=== PATIENT | female | born 1995 | race Caucasian/White ===

== ENCOUNTER 2018-06-16 02:19 | Inpatient (IN) | payer OTHER ==
[2018-06-16] VITALS (10 sets, daily range): BP systolic 86–116; BP diastolic 43–73
[~2018-06-16] VITALS: Ht 160 cm; Wt 56.7 kg
--- NOTE | 2018-06-16 02:25 | NUR ---
PT TAKEN TO BED 11 AND TRIAGED AT BEDSIDE.
--- NOTE | 2018-06-16 02:28 | NUR ---
PT CAME INTO ER WITH C/O OF HAVING DKA, VOMITING AND GENERALIZED WEAKNESS TODAY. PT STATED SHE WAS PREVIOUSLY AT [place] BUT WAS UNHAPPY WITH SERVICE. PT HAS HX OF DIABETES BUT ADMITS TO BEING NON COMPLIANT. WHEN PT TAKES MEDICATION, SHE TAKES HUMULIN R. PT ADMITS TO NOT EATING RIGHT AND NOT TAKING PROPER CARE OF SELF. PT SMOKED MARIJAUNA TODAY. PT WAS HAVING N/V IN ER. PT AMA A/OX4, RECOGNIZES PERSON, PLACE AND TIME APPROPRIATELY. PT STATED LMP WAS 2 WEEKS AGO BUT DATE IS [place]. ER MD MADE AWARE OF STATUS, SAFETY MEASURES IN PLACE, BED RAILS UP X 2. BOYFRIEND AT BEDSIDE. PT DENIES BEING HOMELESS, DRINKING ALCOHOL OR SMOKING CIGARETTES.
--- NOTE | 2018-06-16 02:30 | NUR ---
PT W/C ASSISTED TO RESTROOM. PT ADVISED TO USE CALL LIGHT WHEN FINISHED FOR ASSISTANCE. PT CALLED WITH CALL LIGHT, PT ASSISTED BACK INTO W/C AND TAKEN TO BED 11. PT THEN C/O NAUSEA AND BEGAN DRY HEAVING. PT ASSISTED INTO BED 11. SIGNIFICANT OTHER AT BEDSIDE. DR. KAHN MADE AWARE.
--- NOTE | 2018-06-16 02:34 | NUR ---
DR. KAHN AT BEDSIDE
[2018-06-16] MEDS ORDERED: NACL 0.9% 1,000 ML IV ONE ×3 (02:37→05:50)
[2018-06-16] MEDS ORDERED: INSULIN REGULAR, HUMAN 100 UNIT in NACL 0.9% 100 ML IV ONE ×4 (02:40→04:45)
[2018-06-16] MEDS ORDERED: KCL 20 MEQ/WATER INJ PREMIX 100 ML IV ONE (02:40)
[2018-06-16] MEDS ORDERED: ONDANSETRON 4 MG/2 ML VIAL IVP ONE (02:50)
[2018-06-16 03:18] LABS: APPEARANCE,URINE CLEAR (CLEAR); BILIRUBIN,URINE NEGATIVE (NEGATIVE); BLOOD, URINE NEGATIVE (NEGATIVE); COLOR,URINE YELLOW (YELLOW); LEUKOCYTE ESTERASE ,URINE NEGATIVE (NEGATIVE); NITRITE, URINE NEGATIVE (NEGATIVE); PH,URINE 5.5 (5.0-9.0); UGLUCOSE 2+ (NEGATIVE)
[2018-06-16 03:18] LABS: BASOPHILS % (AUTO) 0.2 % (0.0-2.0); EOSINOPHILS % (AUTO) 0.4 % (0.0-4.0); HEMATOCRIT 46.3 % (36-48); HEMOGLOBIN 15.6 g/dL (12.0-16.0); LYMPHOCYTES # (AUTO) 1.7 K/uL (2.5-16.5); LYMPHOCYTES % (AUTO) 25.4 % (20.5-51.1); MEAN CORPUSCULAR HEMOGLOBIN 31 pg (27-31); MEAN CORPUSCULAR HGB CONC 34 g/dL (33-37); MEAN CORPUSCULAR VOLUME 90.6 fL (80-94); MONOCYTES # (AUTO) 0.3 K/uL (0.8-1.0); MONOCYTES % (AUTO) 3.9 % (1.7-9.3); NEUTROPHILS # (AUTO) 4.8 K/uL (1.8-7.7); NEUTROPHILS % (AUTO) 70.1 % (42.2-75.2); PLATELET COUNT (AUTO) 246 K/uL (140-450); RED BLOOD CELL COUNT(AUTO) 5.11 MIL/uL (4.20-5.40); RED CELL DISTRIBUTION WIDTH 13.4 % (11.6-13.7); WHITE BLOOD COUNT (AUTO) 6.8 K/uL (4.5-11.0)
[2018-06-16 03:30] LABS: RBC,URINE 0-5 /HPF (0-5); WBC,URINE 0-5 /HPF (0-5)
--- NOTE | 2018-06-16 03:30 | NUR ---
PT WAS ABLE TO GET UP WITH ASSISTANCE TO USE THE RESTROOM, PT TOLERATED WELL. COMFORT MEASURES OFFERED. BOYFRIEND AT BEDSIDE.
[2018-06-16 03:32] LABS: ALBUMIN 4.1 g/dL (3.4-5.0); ASPARTATE AMINOTRANSFERASE 15 U/L (15-37); CARBON DIOXIDE 10.3 mmol/L (21-32); CHLORIDE 99 mmol/L (98-107); CREATININE 0.8 mg/dL (0.6-1.3); GFR ARICAN-AMERICAN 118 mL/min (>90); GLUCOSE 305 mg/dL (74-106); POTASSIUM 4.3 mmol/L (3.5-5.1); SODIUM SERUM 132 mmol/L (136-145); TOTAL BILIRUBIN 0.5 mg/dL (0.0-1.0); UREA NITROGEN, BLOOD 6 mg/dL (7-18)
[2018-06-16 03:33] LABS: ACETONE, SERUM SMALL (NEGATIVE)
--- NOTE | 2018-06-16 05:03 | NUR ---
PT IS SLEEPING. COMFORT MEASURES OFFERED. PT TOLERATED WELL. BOYFRIEND AT BEDSIDE.
[2018-06-16] MEDS ORDERED: ZOLPIDEM 5 MG TAB PO PRN (05:25)
[2018-06-16] MEDS ORDERED: DOCUSATE SODIUM 100 MG GELCAP PO PRN (05:25)
[2018-06-16] MEDS ORDERED: MORPHINE SULFATE 2 MG/ML SYR IVP PRN (05:25)
[2018-06-16] MEDS ORDERED: LORazepam 2 MG/ML VIAL IM/IVP PRN (05:25)
[2018-06-16] MEDS ORDERED: ACETAMINOPHEN 325 MG TAB PO PRN (05:25)
[2018-06-16] MEDS ORDERED: HYDROcodone/APAP 5/325 MG 1 TAB TAB PO PRN (05:25)
--- NOTE | 2018-06-16 05:25 | NUR ---
PT IS HAVING SOME PAIN AND AND DISCOMFORT. PT FEELS ANXIOUS AND HAS A HEADACHE. PT HAS SOME NAUSEA. ER MD MADE AWARE OF STATUS. PENDING ADMIT.
[2018-06-16] MEDS ORDERED: DEXTROSE 50% 50 ML SYR IVP PRN (05:30)
[2018-06-16] MEDS: INSULIN REGULAR, HUMAN 100 UNIT in NACL 0.9% 100 ML IV SCH ×4 (05:35→06:57)
--- NOTE | 2018-06-16 05:35 | NUR ---
PT WAS ADMITTED TO ICU #2. PT WAS TAKEN DOWN BY PETER AND LOSS PREVENTION AGENT. EMT, RN AND BOYFRIEND WAS WITH PT. ADMITING DR. WAS DR. GARCIA. REPORT WAS GIVEN GEOVANNA. VITALS WERE STABLE UPON TRANSFER.
--- NOTE | 2018-06-16 05:35 | NUR ---
RECEIVED BEDSIDE REPORT FROM HYPERBARIC NURSE YAZMIN MIRAMONTES LAST BG READING WAS 321. PT ARRIVED TO ICU, COMPLAINT 10/10 PAIN HEADACHE, RESTLESS/CRYING. ABLE TO SLIDE FROM BED GURNEY TO BED WITH ASSIST X2. AAOX4, PERRL, LUNG SOUND CLEAR ON ROOM AIR. DENIES NAUSEA AT THIS TIME. BOWEL SOUNDS ACTIVE X4. ST ON TECHNOLOGY AUDITOR, BP = 116/78, TEMP 98.1, RR=27, MA=555 SATING AT 100%. CONTINENT. PT ARRIVE WITH 10 UNIT/HR HUMULIN INSULIN TO LEFT 20 GAUGE PIV, AND RIGHT 20 GAUGE PIV INFUSING BOLUS NS AT THIS TIME. PT SKIN IS INTACT/WARM TO TOUCH. BOYFRIEND AT BEDSIDE TO TAKE HOME PT BELONGINGS. ALLERGY TO MUSTARD NOTED ON ALLERGY BAND, HOB 20 DEG PER PT REQUEST.
--- NOTE | 2018-06-16 05:45 | NUR ---
PT'S BLOOD SUGAR 256 UPON ARRIVAL, HUMULIN R BOLUS 56 UNITS IVP GIVEN (WEIGHT 56 KG). MEDICATION, DOSE, ROUTE CHECKED WITH SANTA LINDQUIST RN. Addendum: 06/16/18 at 0738 by Santa Abrams RN CORRECTION: HUMULIN R BOLUS OF 5.6 UNITS GIVEN. Addendum: 06/16/18 at 0739 by Catalino Roland RN HUMULIN R BOLUS IVP 5.6 UNITS GIVEN. NOT 56 UNITS. VERIFIED BY SECOND SANTA GAMEZ.
[2018-06-16] MEDS: BLOOD GLUCOSE MONITORING 1 DEV DEV FS SCH ×20 (05:47→23:31)
--- NOTE | 2018-06-16 06:29 | NUR ---
DR. MCWILLIAMS AT BEDSIDE TO SEE PATIENT, UPDATED ON PLAN OF CARE/DX. URINE OUTPUT YELLOW/CLEAR 1200ML. PT CALM/COOPERATIVE AT THIS TIME.
[2018-06-16] MEDS ORDERED: SERT50TA1 PO (06:45)
[2018-06-16] MEDS ORDERED: INSU100S22 SUBQ ×2 (06:45)
--- NOTE | 2018-06-16 07:12 | NUR ---
GAVE BEDSIDE REPORT FOR MORNING SHIFT EMILY GAMEZ.
--- NOTE | 2018-06-16 08:00 | NUR ---
PATIENT AWAKE, ORIENTED, ON ROOM AIR SO2 100%, CLEAR BREATH SOUNDS ON ALL FONSECA, SINUS RHYTHM ON MONITOR 91 BPM, SOFT ABDOMEN, VOIDING THROUGH THE BED ROCK PER NIGHT RN REPORT, PERIPHERAL IV LINES GAUGE 20 EACH ANTECUBITAL, D5 HALF NS 250 ML/HR. INFUSING IN THE RIGHT, INSULIN DRIP 2.8UNITS/HR INFUSING IN THE LEFT BOTH SITES ASYMPTOMATIC, SKIN INTACT. CALL WHELAN WITHIN REACH
[2018-06-16 08:24] LABS: PROTHROMBIN TIME 10.4 secs (10.8-13.4)
[2018-06-16] MEDS: DEXT 5% / NACL 0.45% 1,000 ML IV SCH ×5 (08:25→23:20)
--- NOTE | 2018-06-16 08:28 | NUR ---
FOLLOWED UP LAB. STAFF PING TO GET PATIENT'S BLOOD SAMPLE FOR ORDERED TESTS
[2018-06-16 08:36] LABS: AMYLASE 17 U/L (25-115); CHOL/HDL RATIO 4.9 (1-4.5); HDL CHOLESTEROL 44 mg/dL (40-60); LDL (CALC) 149 mg/dL (60-100); LIPASE 53 U/L (73-393); MAGNESIUM 1.7 mg/dL (1.8-2.4); PHOSPHORUS 2.6 mg/dL (2.5-4.9); THYROID STIMULATING HORMONE 1.49 uIU/mL (0.34-3.74); TRIGLYCERIDES 105 mg/dL (30-150)
--- NOTE | 2018-06-16 08:45 | NUR ---
PAGED DR. TRENT TO INFORM ABOUT THE CONSULT
[2018-06-16 09:30] LABS: BARBITURATE, URINE NEG. ng/ml (NEG <=200); BENZODIAZEPINE, URINE NEG. ng/mL (NEG <=200); CANNABINOID, URINE POS. ng/mL (NEG <=50); COCAINE, URINE NEG. ng/mL (NEG <=300); OPIATE, URINE NEG. ng/mL (NEG <=2000); PHENCYCLIDINE SCREEN,URINE NEG. ng/mL (NEG <=25)
[2018-06-16 10:00] LABS: ANION GAP 24.5 (8-16); CREATININE 0.7 mg/dL (0.6-1.3); POTASSIUM 3.6 mmol/L (3.5-5.1)
[2018-06-16 10:09] LABS: CARBON DIOXIDE 8.1 mmol/L (21-32)
[2018-06-16] MEDS: SERTRALINE 50 MG TAB PO SCH (10:13)
--- NOTE | 2018-06-16 10:20 | NUR ---
ICU CN JANAY INFORMED DR. MCWILLIAMS THAT DR. TRENT BEEN PAGED AND AWAITING CALL BACK
[2018-06-16 10:22] LABS: MAGNESIUM 1.6 mg/dL (1.8-2.4); PHOSPHORUS 1.9 mg/dL (2.5-4.9)
[2018-06-16] MEDS ORDERED: POTASSIUM PHOSPHATE 15 MM in NACL 0.9% 250 ML IV SCH ×2 (11:00→20:00)
[2018-06-16] MEDS: MAG SULF 2000 MG/WATER PREMIX 100 ML IV SCH ×2 (11:31→13:16)
--- NOTE | 2018-06-16 12:15 | NUR ---
SCOTT REPORTED TO DR ABARCA
[2018-06-16 12:21] LABS: PHOSPHORUS 1.8 mg/dL (2.5-4.9)
[2018-06-16 12:24] LABS: ANION GAP 22.8 (8-16); CREATININE 0.7 mg/dL (0.6-1.3); POTASSIUM 3.5 mmol/L (3.5-5.1)
[2018-06-16 12:25] LABS: CARBON DIOXIDE 8.7 mmol/L (21-32)
--- NOTE | 2018-06-16 13:00 | NUR ---
INFORMED DR. MCWILLIAMS PATIENT'S BLOOD SUGARS LAST 2 HOURS 2017, 216. CONTINUE TO MONITOR PER PHYSICIAN
--- NOTE | 2018-06-16 13:32 | NUR ---
DR. MCWILLIAMS IN THE UNIT.INFORMED OF PATIENT'S LATEST BLOOD SUGAR 234. PER PHYSICIAN " GO CHANGE THE RATE TO 0.1 UNITS/KGS./HR AND WHEN BLOOD SUGAR GOES BACK TO <200 THE DECREASE INSULIN DRIP BACK TO 0.05 UNITS/KG/HR. AND KEEP SAME IV FLUID AND RATE"
[2018-06-16] MEDS: ONDANSETRON 4 MG/2 ML VIAL IM/IVP PRN (15:42)
--- NOTE | 2018-06-16 15:55 | NUR ---
INFORMED DR. MCWILLIAMS OF PATIENT'S BLOOD SUGAR TRENDS STILL IN THE 200S LATEST ONE IS 227.
--- NOTE | 2018-06-16 16:34 | NUR ---
DR. MCWILLIAMS HERE AND ORDERED FOR D5 HALF NS AT 150ML/HR., START NORMAL SALINE 100ML/HR. CALLED PHARMACY NO.[phone] BUT NO ANSWER AND UNIT IS CLOSE, LEFT A MESSAGE FOR AFTER HOURS PHARMACY TO VERIFY NS ORDER SO IT WILL COME OUT IN EMAR. INSULIN AT 2.8 UNITS PER HOUR AND DR. MCWILLIAMS AWARE
[2018-06-16 16:44] LABS: ANION GAP 16.8 (8-16); CARBON DIOXIDE 15.3 mmol/L (21-32); CREATININE 0.8 mg/dL (0.6-1.3); POTASSIUM 3.1 mmol/L (3.5-5.1)
[2018-06-16 16:48] LABS: MAGNESIUM 2.8 mg/dL (1.8-2.4); PHOSPHORUS 1.7 mg/dL (2.5-4.9)
--- NOTE | 2018-06-16 17:40 | NUR ---
DR. GEORGE AT BEDSIDE
--- NOTE | 2018-06-16 17:44 | NUR ---
BLOOD SUGAR NOW LESS THAN 177. PER DR. GEORGE "FOLLOW THE DKA PROTOCOL FOR INSULIN AND FLUIDS". D5 HALF NORMAL SALINE RUNNING AT 250 CC/HR. PHYSICIAN MADE AWARE
--- NOTE | 2018-06-16 18:00 | NUR ---
PATIENT WALKED TO THE BEDSIDE COMMODE TO URINATE. RN ON STAND BY ASSIST. PATIENT SAT AT THE EDGE OF BED FOR 10 MINS. AND BACK TO BED THEREAFTER WITHOUT ANY INCIDENCE
[2018-06-16] MEDS: NACL 0.9% 1,000 ML IV SCH (18:37)
--- NOTE | 2018-06-16 18:38 | NUR ---
BLOOD SUGAR 179 DR. LINDO AT BEDSIDE MADE AWARE OF THIS. PER PHYSICIAN "FOLLOW DR. MCWILLIAMS'S ORDER NORMAL SALINE 100 ML/HR., D5 HALF NORMAL SALINE AT 150ML/HR."
--- NOTE | 2018-06-16 19:03 | NUR ---
REPORT GIVEN TO NIGHT RN
--- NOTE | 2018-06-16 19:30 | NUR ---
RECEIVED BEDSIDE REPORT FROM DAIRY BAR MANAGER RN. PT IS ASLEEP, OPENS EYES TO LIGHT TOUCH. FOLLOWS COMMANDS AND ABLE TO MAKE NEEDS KNOWN. AFEBRILE, DENIES PAIN. NORMAL SINUS RHYTHM ON MONITOR. S1 +S2 HEARD. PT IS ON ROOM AIR, O2 SAT 100%, LUNGS SOUND CLEAR BILATERALLY. ABDOMEN SOFT, NONTENDER, NONDISTENDED W/ HYPOACTIVE BOWEL SOUNDS. PERIPHERAL IVS G20 TO LEFT AND RIGHT ANTECUBITAL ASYMPTOMATIC, PATENT AND INTACT. PT IS ON INSULIN DRIP AT 2.8 UNIT/HR, IV FLUIDS NS AT 100 ML/HR AND D51/2NS AT 100 ML/HR. PT IS CONTINENT BOWEL AND BLADDER. SKIN IS DRY AND WARM TO TOUCH. DISCOLORATION TO ANTERIOR LEFT LOWER LEG NOTED. PULSES PALPABLE TO ALL EXTREMITIES. BED IN LOWEST POSITION, LOCKED. CALL LIGHT WITHIN REACH. NO SIGNS OF DISTRESS OR DISCOMFORT NOTED AT THIS TIME. WILL CONTINUE TO MONITOR.
--- NOTE | 2018-06-16 19:44 | NUR ---
NEW ORDER IV FLUID D51/2NS AT 250 ML/HR TO BE INFUSED CONCURRENTLY WITH NS AT 100 ML/HR, NOTED AND CARRIED OUT.
--- NOTE | 2018-06-16 20:00 | NUR ---
PHARMACY UNAVAILABLE AT THIS TIME. GENERAL SUPERVISOR SOURAV MADE AWARE OF POTASSIUM PHOSPHATE 15 MM DUE AT 1999. WILL FOLLOW UP.
[2018-06-16 20:30] LABS: ANION GAP 15.7 (8-16); CARBON DIOXIDE 17.3 mmol/L (21-32); CREATININE 0.7 mg/dL (0.6-1.3)
[2018-06-16 20:32] LABS: MAGNESIUM 2.3 mg/dL (1.8-2.4); PHOSPHORUS 1.7 mg/dL (2.5-4.9)
[2018-06-16] MEDS ORDERED: SODIUM PHOSPHATE 15 MMOLE in NACL 0.9% 250 ML IV ONE (20:50)
[2018-06-16] MEDS ORDERED: SODIUM PHOS / POTASSIUM PHOS 1 PKT PDR PO SCH (22:00)
[2018-06-16] MEDS: KCL 20 MEQ/WATER INJ PREMIX 100 ML IV SCH ×2 (22:30→23:30)
--- NOTE | 2018-06-16 22:30 | NUR ---
BLOOD SUGAR 223. PER DR. LINDO, DECREASE D51/2NS RATE TO 150 ML/HR PER PROTOCOL, STILL INFUSE CONCURRENTLY WITH NS 100 ML/HR. ALSO VERIFIED K PHOS AND K RIDER+NA PHOS ORDERS. PER DR. LINDO, PT ONLY NEEDS K PHOS 15 MM. CLARICE, PHARMACIST MADE AWARE.
[2018-06-17] VITALS (12 sets, daily range): BP systolic 94–125; BP diastolic 46–89
--- NOTE | 2018-06-17 00:25 | NUR ---
PT VOIDED USING BEDSIDE COMMODE. 1400 ML CLEAR YELLOW URINE NOTED. NO C/O PAIN, DIZZINESS, NAUSEA OR OTHER DISCOMFORT AT THIS TIME.
[2018-06-17] MEDS: BLOOD GLUCOSE MONITORING 1 DEV DEV FS SCH ×24 (00:30→23:45)
--- NOTE | 2018-06-17 00:35 | NUR ---
BLUNGER MACHINE OPERATOR AT BEDSIDE FOR BLOOD DRAW. PT'S VSS. ALL SAFETY PRECAUTIONS IN PLACE. WILL CONTINUE TO MONITOR.
[2018-06-17 01:02] LABS: ANION GAP 16.8 (8-16); CARBON DIOXIDE 17.9 mmol/L (21-32); CREATININE 0.6 mg/dL (0.6-1.3)
[2018-06-17 01:04] LABS: PHOSPHORUS 1.8 mg/dL (2.5-4.9)
--- NOTE | 2018-06-17 01:04 | NUR ---
DR. LINDO MADE AWARE OF POTASSIUM LEVEL OF 2.7. ORDER RECEIVED.
[2018-06-17 01:05] LABS: POTASSIUM 2.7 mmol/L (3.5-5.1)
--- NOTE | 2018-06-17 01:15 | NUR ---
CALLED AFTER HOUR PHARMACY TO VERIFY NEW K-RIDER ORDER.
[2018-06-17] MEDS: DEXT 5% / NACL 0.45% 1,000 ML IV SCH ×3 (03:09→13:48)
--- NOTE | 2018-06-17 03:30 | NUR ---
PT VOIDED 1000 ML OF CLEAR YELLOW URINE USING BEDSIDE COMMODE. VSS. NO C/O PAIN OR DISCOMFORT.
[2018-06-17] MEDS: NACL 0.9% 1,000 ML IV SCH ×3 (04:02→19:52)
--- NOTE | 2018-06-17 04:30 | NUR ---
BLOOD SUGAR 156, PT STILL ON INSULIN DRIP AT 2.8 UNITS/HR, D5 1/2NS AT 250 ML/HR, NS AT 100 ML/HR ORDERED.
[2018-06-17 04:31] LABS: BASOPHILS % (AUTO) 0.2 % (0.0-2.0); EOSINOPHILS # (AUTO) 0.1 K/uL (0-0.4); HEMATOCRIT 38.6 % (36-48); HEMOGLOBIN 13.4 g/dL (12.0-16.0); LYMPHOCYTES # (AUTO) 2.2 K/uL (2.5-16.5); LYMPHOCYTES % (AUTO) 38.9 % (20.5-51.1); MEAN CORPUSCULAR HEMOGLOBIN 31 pg (27-31); MEAN CORPUSCULAR HGB CONC 35 g/dL (33-37); MEAN CORPUSCULAR VOLUME 88.6 fL (80-94); MONOCYTES # (AUTO) 0.3 K/uL (0.8-1.0); MONOCYTES % (AUTO) 5.9 % (1.7-9.3); PLATELET COUNT (AUTO) 196 K/uL (140-450); RED BLOOD CELL COUNT(AUTO) 4.36 MIL/uL (4.20-5.40); RED CELL DISTRIBUTION WIDTH 13.1 % (11.6-13.7); WHITE BLOOD COUNT (AUTO) 5.5 K/uL (4.5-11.0)
--- NOTE | 2018-06-17 04:55 | NUR ---
AM CARE PROVIDED, BED BATH GIVEN. PT TOLERATED WELL. DENIES NAUSEA, PAIN OR DISCOMFORT. ALL SAFETY PRECAUTIONS IN PLACE. BED IN LOWEST POSITION, CALL LIGHT WITHIN REACH.
[2018-06-17 04:57] LABS: MAGNESIUM 1.8 mg/dL (1.8-2.4); PHOSPHORUS 2.1 mg/dL (2.5-4.9)
[2018-06-17 05:07] LABS: CARBON DIOXIDE 19.5 mmol/L (21-32); CREATININE 0.5 mg/dL (0.6-1.3)
[2018-06-17] MEDS: INSULIN REGULAR, HUMAN 100 UNIT in NACL 0.9% 100 ML IV SCH ×2 (05:15)
[2018-06-17] MEDS: KCL 20 MEQ/WATER INJ PREMIX 100 ML IV SCH ×4 (05:16→12:00)
[2018-06-17 05:23] LABS: POTASSIUM 2.5 mmol/L (3.5-5.1)
--- NOTE | 2018-06-17 06:00 | NUR ---
PT SEEN AND EXAMINED BY DR. MCWILLIAMS. UPDATES GIVEN ON PT'S CONDITION. WILL FOLLOW UP ON ORDERS.
--- NOTE | 2018-06-17 07:18 | NUR ---
ABG DRAWN ON RR WITHOUT INCIDENT AND RESULTS GIVEN TO
--- NOTE | 2018-06-17 07:21 | NUR ---
REPORT GIVEN TO DAY SHIFT RN FOR CONTINUITY OF CARE. PT IS IN STABLE CONDITION.
--- NOTE | 2018-06-17 07:22 | NUR ---
RECEIVED PATIENT AWAKE, ORIENTED, ON ROOM AIR SO2 100%, CLEAR BREATH SOUNDS ON ALL FONSECA, SINUS RHYTHM ON MONITOR, SOFT ABDOMEN, ASSISTED PATIENT IN VOIDING THROUGH THE BEDSIDE COMMODE, PERIPHERAL IV LINES GAUGE 20 EACH ANTECUBITAL-BOTH SITES ASYMPTOMATIC, ON D5 HALF NS 150 ML/HR. & INSULIN DRIP 2.8UNITS/HR, NORMAL SALINE AT 100ML/HR , KCL CORRECTION ONGOING 50ML/HR., SKIN INTACT. CALL WHELAN WITHIN REACH
--- NOTE | 2018-06-17 07:40 | NUR ---
HUNG THE 2ND BAG OF KCL 20 MEQ IV. ORDER FROM [facility] SHIFT PHYSICIAN TO GIVE A TOTAL OF 2 BAGS=40 MEQ
[2018-06-17 08:16] LABS: ANION GAP 15.1 (8-16); CARBON DIOXIDE 19.7 mmol/L (21-32); CREATININE 0.5 mg/dL (0.6-1.3)
[2018-06-17 08:19] LABS: MAGNESIUM 1.7 mg/dL (1.8-2.4); PHOSPHORUS 1.8 mg/dL (2.5-4.9)
[2018-06-17 08:21] LABS: POTASSIUM 2.8 mmol/L (3.5-5.1)
--- NOTE | 2018-06-17 08:30 | NUR ---
PATIENT REFUSED HAVING SCDs ON. ICU CN AWARE. PATIENT WALKS OCCASIONALLY AROUND THE BEDSIDE TO GO TO THE COMMODE. ENCOURAGED PATIENT TO DO CALF EXERCISES AND MOVE/SHAKE LEGS WHILE IN BED. PATIENT VERBALIZED UNDERSTANDING
[2018-06-17] MEDS: SERTRALINE 50 MG TAB PO SCH (09:28)
--- NOTE | 2018-06-17 10:55 | NUR ---
PER DR. MCWILLIAMS AND VERIFIED WITH PHARMACIST FLORIN TO "ADMINISTER POTASSIUM CORRECTION FIRST THEN PHOSPHOROUS CORRECTION" POTASSIUM CHLORIDE ORDER ACTIVE IN THE EMAR AT THIS TIME (WITH PROTOCOL IN THE MARCELO BOX) AND WILL ADMINISTER
[2018-06-17] MEDS: KCL 20 MEQ/WATER INJ PREMIX 200 ML IV SCH ×4 (11:22→17:00)
--- NOTE | 2018-06-17 11:22 | NUR ---
HOOKED BAG OF KCL 20 MEQ TO RUN FOR 2 HOURS IV ORDERED
--- NOTE | 2018-06-17 11:45 | NUR ---
PATIENT UP TO THE BEDSIDE COMMODE TO URINATE. RN ON STAND BY ASSIST. PATIENT BACK TO BED THEREAFTER WITHOUT ANY INCIDENCE
[2018-06-17 12:41] LABS: PHOSPHORUS 1.4 mg/dL (2.5-4.9)
[2018-06-17 12:46] LABS: ANION GAP 14.9 (8-16); CARBON DIOXIDE 20.1 mmol/L (21-32); CREATININE 0.4 mg/dL (0.6-1.3)
[2018-06-17 12:48] LABS: MAGNESIUM 1.7 mg/dL (1.8-2.4)
[2018-06-17] MEDS ORDERED: POTASSIUM PHOSPHATE 15 MM in NACL 0.9% 250 ML IV ONE ×3 (13:05)
--- NOTE | 2018-06-17 13:47 | NUR ---
HUNG A NEW BAG OF KCL 20 MEQ TO RUN FOR 2 HOURS IV ORDERED
[2018-06-17] MEDS: MAG SULF 2000 MG/WATER PREMIX 100 ML IV SCH ×2 (14:40→16:13)
--- NOTE | 2018-06-17 14:52 | NUR ---
FOLLOWED UP WITH PHARMACIST TO BRING THE BAG OF ORDERED PHOSPHOROUS CORRECTION
[2018-06-17] MEDS ORDERED: SODIUM PHOSPHATE 15 MMOLE in NACL 0.9% 250 ML IV SCH (15:00)
[2018-06-17] MEDS: ONDANSETRON 4 MG/2 ML VIAL IM/IVP PRN (15:31)
[2018-06-17] MEDS ORDERED: POTASSIUM PHOSPHATE 15 MM in NACL 0.9% 250 ML IV SCH (16:00)
[2018-06-17] MEDS ORDERED: MAG SULF 2000 MG/WATER PREMIX 50 ML IV SCH (16:00)
--- NOTE | 2018-06-17 16:15 | NUR ---
DR. MCWILLIAMS AT BEDSIDE TALKING TO PATIENT AND PHYSICIAN OK'd FOR PATIENT TO EAT DIABETIC FOOD FROM OUTSIDE.
[2018-06-17 16:46] LABS: ANION GAP 14.3 (8-16); CARBON DIOXIDE 21.9 mmol/L (21-32); CREATININE 0.4 mg/dL (0.6-1.3); POTASSIUM 3.2 mmol/L (3.5-5.1)
[2018-06-17 16:50] LABS: MAGNESIUM 2.5 mg/dL (1.8-2.4); PHOSPHORUS 1.6 mg/dL (2.5-4.9)
--- NOTE | 2018-06-17 18:00 | NUR ---
PATIENT ABLE TO DO HYGIENIC CARES INDEPENDENTLY. LINENS CHANGED. ALERT ORIENTED, NO NAUSEA/VOMITING, ON INSULIN DRIO 2.8 UNITS/R D5 HALF NS 150 ML/HR. NS 100ML/HR, AND KCL CORRECTION. LINES PATENT IN SITU
--- NOTE | 2018-06-17 19:08 | NUR ---
REPORT GIVEN TO NIGHT RN
--- NOTE | 2018-06-17 19:33 | NUR ---
RECEIVED REPORT FROM MORNING SHIFT RNEMILY. PT IS AWAKE, AAOX4, CALM/COOPERATIVE, DENIES PAIN/NAUSEA AT THIS TIME. BP = 124/89 HR=16, SATING 99%, HR=93, TEMP 97.6. SR ON PET CARE ATTENDANT. ON ROOM AIR, LUNG SOUND CLEAR, ON ROOM AIR. BOWEL SOUNDS ACTIVE X4. 1930 BLOOD GLUCOSE CHECK OF 219. CONTINENT, COMMODE AT BEDSIDE. PT HAS LEFT AC PIV AND RIGHT AC PIV. 22 GAUGE PIV INFUSING SODIUM PHOS AT 42.5CC/HR, INSULIN DRIP AT 2.83 UNITS/HR, NS AT 100/HR, D5 1/2 NS AT 150/HR, AND 20MEQ KCL AT 10MEQ/HR. SKIN IS INTACT, PT SITTING UP WITH HOB ELEVATED DLOSE TO 90 DEG, BOYFRIEND AT BEDSIDE.
--- NOTE | 2018-06-17 19:35 | NUR ---
VERA DIAZ ENDORSED THAT PT HAS BEEN EATING A DIABETIC DIET, BUT WITH FOOD BROUGHT IN FROM OUTSIDE HOSPITAL.
[2018-06-17 20:23] LABS: ANION GAP 12.3 (8-16); CARBON DIOXIDE 23.2 mmol/L (21-32); CREATININE 0.5 mg/dL (0.6-1.3); POTASSIUM 3.5 mmol/L (3.5-5.1)
[2018-06-17 20:27] LABS: MAGNESIUM 2.8 mg/dL (1.8-2.4); PHOSPHORUS 2.1 mg/dL (2.5-4.9)
--- NOTE | 2018-06-17 20:40 | NUR ---
DR LINDO IN TO SEE PATIENT. UPDATED ON PT CONDITIONS.
--- NOTE | 2018-06-17 21:30 | NUR ---
PT UP TO USE BEDSIDE COMMODE, URINE OUTPUT OF 1500ML. CLEAR/YELLOW.
--- NOTE | 2018-06-17 22:45 | NUR ---
CALLED DR. LINDO UPDATED ON PT BG 155, INSULIN DRIP AT 2.83 UNITS/HR, AND NS AT 250CC/HR. PLAN TO WAIT FOR NEXT ABG DUE AT 0000 TO REASSESS ANION GAP.
[2018-06-18] VITALS (7 sets, daily range): BP systolic 110–130; BP diastolic 59–81
--- NOTE | 2018-06-18 00:20 | NUR ---
MANDA FROM LAB AT BEDSIDE TO COLLECT SAMPLE, RT TO COLLECT ABG. PT IS CALM/COOPERATIVE AT THIS TIME, WATCHING TELEVISION AND BOYFRIEND AT BEDSIDE. VSS. NO BM AT THIS TIME.
[2018-06-18] MEDS: BLOOD GLUCOSE MONITORING 1 DEV DEV FS SCH ×12 (00:21→11:37)
[2018-06-18] MEDS: NACL 0.9% 1,000 ML IV SCH ×2 (00:54→03:33)
[2018-06-18 01:14] LABS: ANION GAP 12.8 (8-16); CARBON DIOXIDE 24.3 mmol/L (21-32); CREATININE 0.4 mg/dL (0.6-1.3); POTASSIUM 3.1 mmol/L (3.5-5.1)
[2018-06-18 01:16] LABS: MAGNESIUM 2.4 mg/dL (1.8-2.4); PHOSPHORUS 1.9 mg/dL (2.5-4.9)
--- NOTE | 2018-06-18 01:32 | NUR ---
CALLED DR. LINDO UPDATED ON RECENT BG OF 179, ABG RESULTS. NO CHANGES AT THIS TIME. WILL WAIT TO REASSESS RESULTS FROM 0400 ABG.
[2018-06-18] MEDS: INSULIN REGULAR, HUMAN 100 UNIT in NACL 0.9% 100 ML IV SCH ×2 (03:24)
--- NOTE | 2018-06-18 04:44 | NUR ---
REMOVED LEFT AC 20 GAUGE PIV PER PT REQUEST, REDNESS/BRUISING AT IV SITE/TAPE. AM CARES PROVIDED, SETUP ASSIST. PT INDEPENDENT WITH CARES.
[2018-06-18 04:48] LABS: ANION GAP 13.2 (8-16); CARBON DIOXIDE 22.6 mmol/L (21-32); CREATININE 0.3 mg/dL (0.6-1.3)
[2018-06-18 04:52] LABS: PHOSPHORUS 2.1 mg/dL (2.5-4.9); POTASSIUM 2.8 mmol/L (3.5-5.1)
--- NOTE | 2018-06-18 04:52 | NUR ---
RECEIVED CRITICAL LAB REPORT FROM JASE, OF LOW POTASSIUM 2.8.
--- NOTE | 2018-06-18 04:59 | NUR ---
CALLED DR. LINDO ENDORSED LASTEST BG READING, ABG RESULTS, AND CRITICAL LAB POTASSIUM OF 2.8. WILL FOLLOW UP WITH NEW ORDERS.
[2018-06-18] MEDS ORDERED: DEXT 5% / NACL 0.45% 1,000 ML IV SCH (06:05)
[2018-06-18] MEDS ORDERED: KCL 20 MEQ/WATER INJ PREMIX 200 ML IV SCH (07:00)
--- NOTE | 2018-06-18 07:13 | NUR ---
GAVE BEDSIDE REPORT TO MORNING SHIFT CALDERON GAMEZ.
--- NOTE | 2018-06-18 07:17 | NUR ---
RECEIVED BEDSIDE REPORT FROM GROUP MANAGING DIRECTOR RN, GEOVANNA, FOR CONTINUITY OF CARE. PATIENT IS AAOX4, ABLE TO FOLLOW COMMANDS AND MAKE NEEDS KNOWN. PATIENT SKIN IS WARM, DRY, INTACT, AFEBRILE. PATIENT HAS PERIPHERAL IV SITE TO L. WRIST, 22 GAUGE, R WRIST, 22 GAUGE, AND R AC, 20 GAUGE. ALL ASYMPTOMATIC AND PATENT. PATIENT IS ON ROOM AIR, BREATHING EVEN AND UNLABORED. VITALS STABLE. DENIES ANY PAIN, N, V, OR SOB. HOB IS FOWLERS POSITION, BED LOCKED, SIDE RAILS UP. CALL LIGHT WITHIN REACH, WILL CONTINUE TO MONITOR.
--- NOTE | 2018-06-18 07:28 | NUR ---
PROVIDED PATIENT WITH BREAKFAST TRAY, HOWEVER SHE REFUSED TO EAT IT, STATES THAT SOMEONE WILL BE BRINGING HER BREAKFAST.
--- NOTE | 2018-06-18 08:59 | NUR ---
ASSISTED PATIENT TO BEDSIDE COMMODE, PATIENT VOIDED 800ML. PATIENT IS BACK ON BED, VITALS STABLE.
[2018-06-18] MEDS: SERTRALINE 50 MG TAB PO SCH (09:18)
[2018-06-18 09:30] LABS: ANION GAP 13.3 (8-16); CARBON DIOXIDE 22.2 mmol/L (21-32); CREATININE 0.4 mg/dL (0.6-1.3); POTASSIUM 3.5 mmol/L (3.5-5.1)
[2018-06-18 09:33] LABS: PHOSPHORUS 2.3 mg/dL (2.5-4.9)
[2018-06-18 10:02] LABS: BASOPHILS % (AUTO) 0.4 % (0.0-2.0); EOSINOPHILS # (AUTO) 0.1 K/uL (0-0.4); EOSINOPHILS % (AUTO) 1.4 % (0.0-4.0); HEMATOCRIT 38.5 % (36-48); HEMOGLOBIN 13.4 g/dL (12.0-16.0); LYMPHOCYTES # (AUTO) 2.3 K/uL (2.5-16.5); LYMPHOCYTES % (AUTO) 50.7 % (20.5-51.1); MEAN CORPUSCULAR HEMOGLOBIN 30 pg (27-31); MEAN CORPUSCULAR HGB CONC 35 g/dL (33-37); MEAN CORPUSCULAR VOLUME 87.2 fL (80-94); MONOCYTES # (AUTO) 0.3 K/uL (0.8-1.0); MONOCYTES % (AUTO) 7.3 % (1.7-9.3); NEUTROPHILS # (AUTO) 1.8 K/uL (1.8-7.7); NEUTROPHILS % (AUTO) 40.2 % (42.2-75.2); PLATELET COUNT (AUTO) 191 K/uL (140-450); RED BLOOD CELL COUNT(AUTO) 4.42 MIL/uL (4.20-5.40); WHITE BLOOD COUNT (AUTO) 4.5 K/uL (4.5-11.0)
--- NOTE | 2018-06-18 10:56 | NUR ---
DR. MCWILLIAMS IN TO SPEAK WITH PATIENT, UPDATED ON PATIENT'S CONDITION. WILL FOLLOW UP ON ANY ORDERS.
--- NOTE | 2018-06-18 11:06 | NUR ---
PATIENT'S FAMILY AT BEDSIDE.
--- NOTE | 2018-06-18 11:41 | NUR ---
SAFETY RISK LEAD IN TO SEE PATIENT
--- NOTE | 2018-06-18 11:49 | NUR ---
PATIENT STATES THAT SHE WANTS TO SIGN PAPERS TO LEAVE HOSPITAL AGAINST MEDICAL ADVICE. DR. MCWILLIAMS WAS CALLED STATES THAT SHE WILL BE COMING IN TO SEE PATIENT.
--- NOTE | 2018-06-18 12:02 | NUR ---
DR. MCWILLIAMS IN TO SPEAK WITH PATIENT REGARDING PATIENT WANTING TO LEAVE AGAINST MEDICAL ADVICE. DR. MCWILLIAMS EDUCATED PATIENT ON IMPORTANCE OF CHECKING BLOOD SUGAR AND TAKING LANTUS SOON SHE GETS HOME, STATES THAT IF PATIENT HAS ANY WORSENING SYMPTOMS TO GO STRAIGHT TO ER. PATIENT AND PATIENT'S BOYFRIEND ARE AWARE, VERBALIZED UNDERSTANDING.
== END 2018-06-18 12:28 | disposition left against medical advice (07) | DRG 638 ==
LOC: MED 02:19 → MIC 05:22
PROVIDERS: ADMIT General Practice; ATTEND General Practice
DX: E10.10 Type 1 diabetes mellitus with ketoacidosis without coma (principal); E87.1 Hypo-osmolality and hyponatremia; E86.0 Dehydration; E87.6 Hypokalemia; E83.39 Other disorders of phosphorus metabolism; E83.51 Hypocalcemia; F32.9 Major depressive disorder, single episode, unspecified; I95.9 Hypotension, unspecified; E83.41 Hypermagnesemia; Z53.21 Procedure and treatment not carried out due to patient leaving prior to being seen by health care provider; E83.42 Hypomagnesemia; Z91.19 Patient's noncompliance with other medical treatment and regimen; Z83.3 Family history of diabetes mellitus; Z81.8 Family history of other mental and behavioral disorders
CPT/HCPCS: 36415; 36600; 71045; 80048; 80053; 80305; 81001; 81025; 82009; 82150; 82803; 82948; 83036; 83605; 83690; 83735; 84100; 84134; 84436; 84443; 84484; 85025; 85610; 85730; 87040; 87081; 87086; 93005; 96365; 96375; 99291; G0482; J1815; J2270; J2405; J3475; J3480; J7030; Q0092

== ENCOUNTER 2021-10-15 05:50 | Inpatient (IN) | payer OTHER ==
[2021-10-15] VITALS (8 sets, daily range): BP systolic 104–151; BP diastolic 53–104
[~2021-10-15] VITALS: Ht 160 cm; Wt 55.5 kg
--- NOTE | 2021-10-15 00:44 | NUR ---
PATIENT WITH BLOOD SUGAR OF 83, D5 02/07 NS INCREASED TO 200ML/HR PER DKA PROTOCOL Addendum: 10/16/21 at 0127 by Mary Chairez RN DISREGARD THIS ENTRY
[~2021-10-15 05:50] MED LIST: INSU100S22 SUBQ; SERT50TA1 PO
--- NOTE | 2021-10-15 05:55 | NUR ---
PT DILIA ALS. TAKEN TO BED 11
[2021-10-15] MEDS ORDERED: MORPHINE SULFATE 4 MG/ML SYR ONE (05:58)
[2021-10-15] MEDS ORDERED: ONDANSETRON 4 MG/2 ML VIAL ONE (05:59)
[2021-10-15] MEDS ORDERED: ONDANSETRON 4 MG/2 ML VIAL IVP ONE ×2 (06:00→06:10)
[2021-10-15] MEDS ORDERED: MORPHINE SULFATE 4 MG/ML SYR IVP ONE (06:00)
--- NOTE | 2021-10-15 06:01 | NUR ---
Dr. Dee examining patient.
[2021-10-15] MEDS ORDERED: MORPHINE SULFATE 2 MG/ML SYR IVP STA (06:08)
--- NOTE | 2021-10-15 06:09 | NUR ---
4MG 1ML IV MORPHINE BOTTLE PULLED, 0.5ML 2MG MORPHINE DRAWN PER PHYSICIAN ORDERS. 0.5ML 2MG WASTED AND RECOREDED IN PIXIS, WITH CO-SIGN. DROPPED 0.5ML 2MG MORPHINE THAT WAS DRAWN. WASTE SHOWN TO CHARGE NURSE, WHO VERIFIED DROPPED 0.5ML 2MG MORPHINE IS WASTED PROPERLY. CHARGE NURSE COSIGNED WASTE OF OTHER HALF OF ORIGINAL 4MG 1ML IV MORPHINE. WHOLE BOTTLE WASTED PROPERLY IN WASTE BOTTLE AND PROPERLY RECORDED IN PIXIS. ER PHYSICIAN ORDERED 2MG 1ML IV MORPHINE. 2MG 1ML IV MORPHINE PULLED FROM PIXIS AND GIVEN PER PHYSICIAN ORDERS.
[2021-10-15] MEDS: MORPHINE SULFATE 4 MG/ML SYR IVP ONE ×2 (06:33→06:43)
[2021-10-15 06:49] LABS: BASOPHILS # (AUTO) 0.1 K/uL (0.00-0.22); BASOPHILS % (AUTO) 0.6 % (0.0-2.0); EOSINOPHILS # (AUTO) 0.2 K/uL (0-0.4); EOSINOPHILS % (AUTO) 1.7 % (0.0-4.0); HEMOGLOBIN 15.1 g/dL (12.0-16.0); LYMPHOCYTES # (AUTO) 2.4 K/uL (2.5-16.5); LYMPHOCYTES % (AUTO) 26.5 % (20.5-51.1); MEAN CORPUSCULAR HEMOGLOBIN 31 pg (27-31); MEAN CORPUSCULAR HGB CONC 34 g/dL (33-37); MEAN CORPUSCULAR VOLUME 91.4 fL (80-94); MONOCYTES # (AUTO) 0.3 K/uL (0.8-1.0); MONOCYTES % (AUTO) 3.9 % (1.7-9.3); NEUTROPHILS % (AUTO) 67.3 % (42.2-75.2); PLATELET COUNT (AUTO) 299 K/uL (140-450); RED BLOOD CELL COUNT(AUTO) 4.92 MIL/uL (4.20-5.40); RED CELL DISTRIBUTION WIDTH 13.2 % (11.6-13.7); WHITE BLOOD COUNT (AUTO) 8.9 K/uL (4.8-10.8)
[2021-10-15 07:00] LABS: ALBUMIN 4.1 g/dL (3.4-5.0); ANION GAP 29.1 (8-16); CARBON DIOXIDE 10.2 mmol/L (21-32); CREATININE 0.8 mg/dL (0.6-1.3); MAGNESIUM 1.7 mg/dL (1.8-2.4); POTASSIUM 4.3 mmol/L (3.5-5.1); TOTAL BILIRUBIN 0.5 mg/dL (0.0-1.0)
[2021-10-15] MEDS ORDERED: CAPSAICIN 0.025% CRE 60 GM TUBE TP STA (07:06)
[2021-10-15] MEDS ORDERED: DICYCLOMINE HCL LIQUID 20 MG, ALUMINUM HYD/MAG/SIMETHICONE 30 ML, LIDOCAINE VISCOUS 2% ... PO ONE ×3 (07:10)
[2021-10-15] MEDS ORDERED: DICYCLOMINE HCL LIQUID 10 MG/5 ML UDC ONE (07:11)
[2021-10-15] MEDS ORDERED: ALUMINUM HYD/MAG/SIMETHICONE 30 ML UDC ONE (07:11)
--- NOTE | 2021-10-15 07:28 | NUR ---
Change of shift report given to AM shift nurse Luciana GAMEZ. AM shift nurse Luciana RN verbalized understanding of report, no further questions.
--- NOTE | 2021-10-15 07:30 | NUR ---
PT PRESENTS TO ER FOR ABDOMINAL PAIN N/V. CRYING 9/10 AT THIS TIME. STACH ON MONITOR. NO FURTHER ORDERS AT THIS TIME. DR PADRON MADE AWARE.
[2021-10-15] MEDS ORDERED: INSULIN REGULAR, HUMAN 100 UNIT in NACL 0.9% 100 ML IV ONE ×2 (08:20)
[2021-10-15] MEDS ORDERED: HALOPERIDOL IM 5 MG/ML VIAL IM ONE (08:20)
[2021-10-15] MEDS ORDERED: NACL 0.9% 1,000 ML IV ONE (08:20)
[2021-10-15] MEDS ORDERED: diphenhydrAMINE 50 MG/ML VIAL IVP ONE (08:25)
--- NOTE | 2021-10-15 08:30 | NUR ---
PT C/O 10 ABDOMINAL PAIN DRY HEAVING, MEDICATED WITH BENADRYL AND IM HALDOL PER ORDER.
--- NOTE | 2021-10-15 09:00 | NUR ---
PT NOW RESTING. APPEARS COMFORTABLE. STACH ON MONITOR.
--- NOTE | 2021-10-15 11:00 | NUR ---
INSULIN DECREASED TO 2 UNITS/HR PER DR PADRON.
[2021-10-15] MEDS ORDERED: POTASSIUM CHL 20 MEQ/D5-1/2NS 1,000 ML IV ONE (11:20)
[2021-10-15 12:15] LABS: ANION GAP 26.6 (8-16); CREATININE 0.7 mg/dL (0.6-1.3); POTASSIUM 4.4 mmol/L (3.5-5.1)
[2021-10-15 12:16] LABS: CARBON DIOXIDE 6.8 mmol/L (21-32)
--- NOTE | 2021-10-15 15:00 | NUR ---
BS 236, INSULIN INCREASED TO 5.5 UNITS/HR PER DR HYLTON ORDERS FOR TITRATION.
[2021-10-15] MEDS ORDERED: ONDANSETRON 4 MG/2 ML VIAL IM/IVP PRN (15:25)
[2021-10-15] MEDS ORDERED: MAG SULF 2000 MG/WATER PREMIX 50 ML IV PRN (15:25)
[2021-10-15] MEDS ORDERED: MORPHINE SULFATE 2 MG/ML SYR IVP PRN (15:25)
[2021-10-15] MEDS ORDERED: DOCUSATE SODIUM 100 MG GELCAP PO PRN (15:25)
[2021-10-15] MEDS ORDERED: HYDROcodone/APAP 5/325 MG 1 TAB TAB PO PRN (15:25)
[2021-10-15] MEDS ORDERED: POTASSIUM CHLORIDE 40 MEQ, LIDOCAINE MPF 1% 25 MG in NACL 0.9% 250 ML IV PRN (15:25)
[2021-10-15] MEDS ORDERED: DEXTROSE 50% 50 ML SYR IVP PRN (15:25)
[2021-10-15] MEDS ORDERED: SODIUM PHOS / POTASSIUM PHOS 1 PKT PDR PO PRN (15:25)
[2021-10-15] MEDS ORDERED: INSULIN LISPRO SLIDING SCALE 100 UNITS/ML VIAL SUBQ PRN (15:25)
[2021-10-15] MEDS ORDERED: ACETAMINOPHEN 325 MG TAB PO PRN (15:25)
[2021-10-15] MEDS ORDERED: INSULIN REGULAR, HUMAN 100 UNIT in NACL 0.9% 100 ML IV SCH ×2 (15:40)
[2021-10-15] MEDS ORDERED: INSU100S22 SUBQ ×2 (15:42)
[2021-10-15] MEDS ORDERED: HUM SUBQ (15:42)
[2021-10-15] MEDS ORDERED: SODIUM BICARBONATE 8.4% PFS 50 MEQ/50 ML SYR IVP SCH (16:00)
[2021-10-15] MEDS ORDERED: BLOOD GLUCOSE MONITORING 1 DEV DEV FS SCH ×2 (16:30→20:00)
[2021-10-15] MEDS: BLOOD GLUCOSE MONITORING 1 DEV DEV FS SCH ×9 (16:40→23:47)
--- NOTE | 2021-10-15 16:40 | NUR ---
1600 VBG CANCELLED DUE TO ALREADY BEING DRAWN IN THE ER. NEXT VBG AT 1999, VBG Q4.
[2021-10-15 16:48] LABS: MAGNESIUM 1.6 mg/dL (1.8-2.4); PHOSPHORUS 3.1 mg/dL (2.5-4.9)
--- NOTE | 2021-10-15 17:00 | NUR ---
RECEIVED REPORT FROM ED RN. PT CAME FROM HOME TO ED. FULL CODE. STANDARD PRECAUTION. A&O X4. SR ON MONITOR. C/O N/V. DX, DKA. PT ALLERGIC TO MUSTARD. VBG PH 7.139. BICARB 6.5. LT AC IV 18 GAUGE. RUNNING D5 1/2 WITH 20 MEQ K @ 125 ML/HR. LT WRIST 20 GAUGE RUNNING INSULIN @5.5 UNITS/HR. RAC 20G IV PATENT, SALINE LOCK. NPO. WT, 58.2KG. SKIN INTACT. SIGN BUILDER SUPERVISOR DENNY [phone].
--- NOTE | 2021-10-15 19:15 | NUR ---
ENDORSED BEDSIDE REPORT TO NIGHT VERA EMERSON FOR CONTINUITY OF CARE.
--- NOTE | 2021-10-15 19:20 | NUR ---
RECEIVED ENDORSEMENT FROM DAY SHIFT (DWAIN Gupta RN) 26YR OLD FEMALE WITH DKA, LYING IN BED; PATIENT AWAKENS TO NAME; EASY TO AROUSE PATIENT INFORMED THAT WE WILL CHECK BLOOD SUGAR EVERY HOUR CURRENTLY ON INSULIN DRIP AND IS RECEIVING D5 WITH POTASSIUM; WILL TRANSITION TO IVF UPON COMPLETION OF POTASSIUM DRIP
--- NOTE | 2021-10-15 20:15 | NUR ---
PATIENT'S MOTHER IN LAW AT BEDSIDE, ALL QUESTIONS ANSWERED.
[2021-10-15] MEDS: NACL 0.9% 1,000 ML IV SCH (20:19)
[2021-10-15 20:46] LABS: MAGNESIUM 1.6 mg/dL (1.8-2.4); PHOSPHORUS 1.6 mg/dL (2.5-4.9)
[2021-10-15 21:33] LABS: APPEARANCE,URINE CLEAR (CLEAR); BILIRUBIN,URINE 1+ (NEGATIVE); BLOOD, URINE 3+ (NEGATIVE); COLOR,URINE YELLOW (YELLOW); LEUKOCYTE ESTERASE ,URINE NEGATIVE (NEGATIVE); NITRITE, URINE NEGATIVE (NEGATIVE); UGLUCOSE TRACE (NEGATIVE)
[2021-10-15 21:43] LABS: BARBITURATE, URINE NEGATIVE ng/ml (NEG <=200); BENZODIAZEPINE, URINE NEGATIVE ng/mL (NEG <=200); CANNABINOID, URINE NEGATIVE ng/mL (NEG <=50); COCAINE, URINE NEGATIVE ng/mL (NEG <=300); PHENCYCLIDINE SCREEN,URINE NEGATIVE ng/mL (NEG <=25)
[2021-10-15 21:44] LABS: OPIATE, URINE POSITIVE ng/mL (NEG <=2000)
--- NOTE | 2021-10-15 21:45 | NUR ---
PATIENT WITH BLOOD SUGAR OF 103; PATIENT TRANSITIONED FROM NS TO D5 1/2 TO RUN AT 150ML/HR PER DKA PROTOCOL.
[2021-10-15 21:47] LABS: OTHER CASTS, URINE None Seen /LPF (None Seen); RBC,URINE 11-20 (MOD) /HPF (0-5); WBC,URINE 0-5 /HPF (0-5)
[2021-10-15] MEDS: DEXT 5% / NACL 0.45% 1,000 ML IV SCH (22:07)
[2021-10-16] VITALS: BP 112/60
--- NOTE | 2021-10-16 00:44 | NUR ---
PATIENT WITH BLOOD SUGAR OF 83, D5 1/2 NS INCREASED TO 200ML/HR PER DKA PROTOCOL
[2021-10-16 00:45] LABS: CARBON DIOXIDE 17.2 mmol/L (21-32); CREATININE 0.7 mg/dL (0.6-1.3); POTASSIUM 3.2 mmol/L (3.5-5.1)
[2021-10-16] MEDS: BLOOD GLUCOSE MONITORING 1 DEV DEV FS SCH ×5 (00:46→04:54)
[2021-10-16 01:00] VITALS: BP 153/95
[2021-10-16] MEDS: NACL 0.9% 1,000 ML IV SCH (01:25)
[2021-10-16 02:00] VITALS: BP 113/64
[2021-10-16] MEDS ORDERED: KCL 20 MEQ/WATER INJ PREMIX 200 ML IV PRN (02:00)
--- NOTE | 2021-10-16 02:54 | NUR ---
PATIENT WITH K+ = 3.2 RESULTED FROM [facility] PATIENT TO RECEIVE IV POTASSIUM 20mEq/100ml x2
[2021-10-16 03:00] VITALS: BP 103/60
[2021-10-16 04:00] VITALS: BP 98/50
[2021-10-16] MEDS: DEXT 5% / NACL 0.45% 1,000 ML IV SCH (04:10)
[2021-10-16 04:41] LABS: ANION GAP 16.3 (8-16); CREATININE 0.7 mg/dL (0.6-1.3); POTASSIUM 3.3 mmol/L (3.5-5.1)
[2021-10-16 04:45] LABS: MAGNESIUM 1.6 mg/dL (1.8-2.4); PHOSPHORUS 1.8 mg/dL (2.5-4.9)
--- NOTE | 2021-10-16 04:53 | NUR ---
PATIENT DECLINED AM CARE THIS MORNING
--- NOTE | 2021-10-16 04:55 | NUR ---
HIGH ENERGY FORMING EQUIPMENT OPERATOR AT BEDSIDE
--- NOTE | 2021-10-16 04:57 | NUR ---
PATIENT INQUIRED WHEN SHE COULD DISCHARGE HOME; INFORMED PATIENT THAT WE ARE WAITING FOR ONE OF HER LAB VALUES TO NORMALIZE BEFORE THE MD WILL CONSIDER A DISCHARGE ANION GAP AT MIDNIGHT WAS 16.0
--- NOTE | 2021-10-16 06:15 | NUR ---
PATIENT REQUESTING TO SIGN OUT AMA EXPLAINED RISKS TO PATIENT, AND INFORMED PATIENT THAT SHE WAS STILL RECEIVING TREATMENT (INSULIN DRIP, IVF, AND WAS GETTING READY TO GET IV MAGNESIUM) PATIENT REPORTS THAT SHE IS FULLY AWARE OF RISKS; DOES NOT WANT TO WAIT AN HOUR AND A HALF TO SEE THE MD. PATIENT REPORTS THAT SHE HAS A RIDE AND LIVES REALLY CLOSE, PATIENT'S MOTHER IS ON THE WAY TO COME AND PICK HER UP AND WILL ALSO BRING CLOTHES FOR PATIENT TO WEAR HOME. PATIENT ADVISED THAT MD WILL BE CONTACTED PRIOR TO PROVIDING AN AMA FORM FOR PATIENT TO SIGN
[2021-10-16 06:28] LABS: BASOPHILS % (AUTO) 0.3 % (0.0-2.0); EOSINOPHILS # (AUTO) 0.1 K/uL (0-0.4); EOSINOPHILS % (AUTO) 1.2 % (0.0-4.0); HEMATOCRIT 39.3 % (36-48); HEMOGLOBIN 13.6 g/dL (12.0-16.0); LYMPHOCYTES % (AUTO) 31.5 % (20.5-51.1); MEAN CORPUSCULAR HEMOGLOBIN 31 pg (27-31); MEAN CORPUSCULAR HGB CONC 35 g/dL (33-37); MEAN CORPUSCULAR VOLUME 88.6 fL (80-94); MONOCYTES # (AUTO) 0.6 K/uL (0.8-1.0); MONOCYTES % (AUTO) 5.8 % (1.7-9.3); NEUTROPHILS # (AUTO) 5.9 K/uL (1.8-7.7); NEUTROPHILS % (AUTO) 61.2 % (42.2-75.2); PLATELET COUNT (AUTO) 269 K/uL (140-450); RED BLOOD CELL COUNT(AUTO) 4.44 MIL/uL (4.20-5.40); WHITE BLOOD COUNT (AUTO) 9.6 K/uL (4.8-10.8)
--- NOTE | 2021-10-16 06:28 | NUR ---
PHONE CALL PLACED TO DR. OLEG IRVING. -ADVISED MD THAT PATIENT WANTED TO LEAVE AMA -ADVISED THAT PATIENT WAS STILL ON INSULIN DRIP WITH Q HOUR BLOOD SUGAR CHECKS -ADVISED THAT PATIENT STILL NEEDS IV MAGNESIUM FOR MAGNESIUM OF 1.6 STATES THAT IF PATIENT WANTS TO LEAVE, SHE IS FREE TO GO, AND TO HAVE HER SIGN A FORM
--- NOTE | 2021-10-16 06:30 | NUR ---
AMA FORM PRESENTED TO PATIENT, REVIEWED ALL RISKS AGAIN FOR LEAVING AMA PATIENT SIGNED FORM REMOVED ALL IV ACCESS REMOVED ELECTRODES FOR EKG MONITORING PROVIDE PATIENT WITH BAG OF CLOTHES THAT WAS AT BEDSIDE
--- NOTE | 2021-10-16 07:15 | NUR ---
PATIENT LEFT ICU VIA WHEELCHAIR ACCOMPANIED BY MOM. PATIENT IS AWAKE, ALERT AND ORIENTED, SMILING, LAUGHING, AND TALKING WITH MOTHER AT HER SIDE.
[2021-10-16] MEDS ORDERED: INSULIN LANTUS 100 UNITS/ML 10 ML VIAL SUBQ SCH (09:00)
[2021-10-16] MEDS ORDERED: PANTOPRAZOLE 40 MG INJ VIAL IVP SCH (09:00)
== END 2021-10-16 07:00 | disposition left against medical advice (07) | DRG 639 ==
LOC: MED 05:50 → MIC 15:25
PROVIDERS: ADMIT Hospitalist; ATTEND Hospitalist
DX: E11.10 Type 2 diabetes mellitus with ketoacidosis without coma (principal); F32.A Depression, unspecified; F12.90 Cannabis use, unspecified, uncomplicated; Z53.29 Procedure and treatment not carried out because of patient's decision for other reasons; Z20.822 Contact with and (suspected) exposure to COVID-19; F19.10 Other psychoactive substance abuse, uncomplicated; R11.10 Vomiting, unspecified; Z79.4 Long term (current) use of insulin; Z79.899 Other long term (current) drug therapy; Z81.8 Family history of other mental and behavioral disorders; Z83.3 Family history of diabetes mellitus; Z91.14 Patient's other noncompliance with medication regimen
CPT/HCPCS: 36415; 80048; 80053; 80305; 81001; 82803; 82948; 83036; 83690; 83735; 84100; 84702; 85025; 87081; 96361; 96372; 96374; 96375; 99291; J1200; J1630; J1815; J2270; J2405; J3475; J3480

== ENCOUNTER 2021-12-31 09:24 | Emergency (ER) | payer OTHER ==
[~2021-12-31] VITALS: Ht 160 cm; Wt 55.3 kg
[~2021-12-31 09:24] MED LIST changes: +HUM SUBQ
[2021-12-31 09:30] VITALS: BP 167/80
--- NOTE | 2021-12-31 09:34 | NUR ---
Patient ambulated to bed 8.
[2021-12-31] MEDS ORDERED: LORazepam 0.5 MG TAB PO ONE (09:35)
[2021-12-31] MEDS ORDERED: NACL 0.9% 1,000 ML IV ONE ×2 (09:35→10:40)
[2021-12-31 09:47] LABS: BASOPHILS % (AUTO) 0.4 % (0.0-2.0); EOSINOPHILS % (AUTO) 0.4 % (0.0-4.0); HEMATOCRIT 45.4 % (36-48); HEMOGLOBIN 15.5 g/dL (12.0-16.0); LYMPHOCYTES # (AUTO) 1.7 K/uL (2.5-16.5); LYMPHOCYTES % (AUTO) 17.5 % (20.5-51.1); MEAN CORPUSCULAR HEMOGLOBIN 30 pg (27-31); MEAN CORPUSCULAR HGB CONC 34 g/dL (33-37); MONOCYTES # (AUTO) 0.3 K/uL (0.8-1.0); NEUTROPHILS # (AUTO) 7.4 K/uL (1.8-7.7); NEUTROPHILS % (AUTO) 78.7 % (42.2-75.2); PLATELET COUNT (AUTO) 269 K/uL (140-450); RED CELL DISTRIBUTION WIDTH 12.5 % (11.6-13.7); WHITE BLOOD COUNT (AUTO) 9.4 K/uL (4.8-10.8)
[2021-12-31 09:58] LABS: ANION GAP 20.2 (8-16); CARBON DIOXIDE 20.7 mmol/L (21-32); CREATININE 0.6 mg/dL (0.6-1.3); POTASSIUM 3.9 mmol/L (3.5-5.1)
--- NOTE | 2021-12-31 10:27 | NUR ---
Lab at bedside.
--- NOTE | 2021-12-31 10:32 | NUR ---
26 y/o female bib self with c/o nausea and vomiting x yesterday. Per patient, she drank for the first time yesterday. Per patient she had 3 margaritas. Patient denies any fever, chills or SOB Medical History: DM1 ALLERGY: MUSTARD
[2021-12-31] MEDS: NACL 0.9% 1,000 ML IV ONE ×2 (10:42→11:15)
[2021-12-31 11:08] LABS: ANION GAP 17.8 (8-16); CARBON DIOXIDE 19.6 mmol/L (21-32); CREATININE 0.5 mg/dL (0.6-1.3); POTASSIUM 4.4 mmol/L (3.5-5.1)
[2021-12-31] MEDS ORDERED: ONDANSETRON 4 MG/2 ML VIAL IVP ONE (11:20)
--- NOTE | 2021-12-31 11:37 | NUR ---
Dr. Dee evaluating patient at bedside.
[2021-12-31 12:05] VITALS: BP 121/76
[2021-12-31 13:06] LABS: ANION GAP 20.4 (8-16); CARBON DIOXIDE 15.9 mmol/L (21-32); CREATININE 0.4 mg/dL (0.6-1.3); POTASSIUM 4.3 mmol/L (3.5-5.1)
[2021-12-31] MEDS ORDERED: ASPIRIN 325 MG TABEC PO ONE (13:15)
--- NOTE | 2021-12-31 13:32 | NUR ---
Patient does not wish to proceed with medical care recommended by NEREIDA. Patient given information related to possible complications, up to and including , which could occur as a result of leaving hospital at this time. Patient verbalizes understanding of risks involved leaving against medical advice. Patient has signed AMA form.
== END 2021-12-31 13:32 | disposition left against medical advice (07) ==
LOC: MED 09:24
DX: R11.2 Nausea with vomiting, unspecified (principal); E10.9 Type 1 diabetes mellitus without complications; Z20.822 Contact with and (suspected) exposure to COVID-19; Z79.899 Other long term (current) drug therapy; Z91.018 Allergy to other foods
CPT/HCPCS: 36415; 80048; 82803; 83735; 85025; 87426; 96361; 96374; 99283; J2405

== ENCOUNTER 2021-12-31 23:20 | Emergency (ER) | payer OTHER ==
[~2021-12-31] VITALS: Ht 160 cm; Wt 54.4 kg
--- NOTE | 2021-12-31 23:22 | NUR ---
PT BROGHT TO BED 4 VIA GABRIEL GREEN
[2021-12-31 23:24] VITALS: BP 122/79
--- NOTE | 2021-12-31 23:30 | NUR ---
SPOKE WITH PATIENT AT BEDSIDE, COMPLAINS OF N/V x5 DAYS; WAS SEEN IN ER EARLIER THIS MORNING FOR SAME COMPLAINTS. DENIES DIARRHEA, DENIES ABDOMEN PAIN. DOES ENDORSE ABDOMINAL DISCOMFORT. PATIENT IS DIABETIC AND USES LANTUS AND HUMALOG
[2021-12-31] MEDS ORDERED: KETOROLAC 30 MG/ML VIAL IVP ONE (23:40)
[2021-12-31] MEDS ORDERED: NACL 0.9% 1,000 ML IV ONE (23:40)
[2022-01-01 00:01] LABS: BASOPHILS % (AUTO) 0.4 % (0.0-2.0); EOSINOPHILS % (AUTO) 0.4 % (0.0-4.0); HEMATOCRIT 40.7 % (36-48); HEMOGLOBIN 13.6 g/dL (12.0-16.0); LYMPHOCYTES # (AUTO) 2.5 K/uL (2.5-16.5); LYMPHOCYTES % (AUTO) 26.7 % (20.5-51.1); MEAN CORPUSCULAR HEMOGLOBIN 30 pg (27-31); MEAN CORPUSCULAR HGB CONC 33 g/dL (33-37); MEAN CORPUSCULAR VOLUME 90.5 fL (80-94); MONOCYTES # (AUTO) 0.4 K/uL (0.8-1.0); MONOCYTES % (AUTO) 4.3 % (1.7-9.3); NEUTROPHILS # (AUTO) 6.4 K/uL (1.8-7.7); NEUTROPHILS % (AUTO) 68.2 % (42.2-75.2); PLATELET COUNT (AUTO) 258 K/uL (140-450); RED BLOOD CELL COUNT(AUTO) 4.49 MIL/uL (4.20-5.40); RED CELL DISTRIBUTION WIDTH 12.7 % (11.6-13.7); WHITE BLOOD COUNT (AUTO) 9.4 K/uL (4.8-10.8)
[2022-01-01 00:16] LABS: ALBUMIN 3.3 g/dL (3.4-5.0); ANION GAP 21.5 (8-16); ASPARTATE AMINOTRANSFERASE 18 U/L (15-37); CARBON DIOXIDE 14.2 mmol/L (21-32); CHLORIDE 106 mmol/L (98-107); CREATININE 0.5 mg/dL (0.6-1.3); GFR ARICAN-AMERICAN 195 mL/min (>90); GLUCOSE 150 mg/dL (74-106); POTASSIUM 3.7 mmol/L (3.5-5.1); SODIUM SERUM 138 mmol/L (136-145); TOTAL BILIRUBIN 0.5 mg/dL (0.0-1.0); UREA NITROGEN, BLOOD 9 mg/dL (7-18)
[2022-01-01 00:44] LABS: APPEARANCE,URINE CLEAR (CLEAR); BILIRUBIN,URINE NEGATIVE (NEGATIVE); BLOOD, URINE NEGATIVE (NEGATIVE); COLOR,URINE YELLOW (YELLOW); LEUKOCYTE ESTERASE ,URINE NEGATIVE (NEGATIVE); NITRITE, URINE NEGATIVE (NEGATIVE); UGLUCOSE TRACE (NEGATIVE)
[2022-01-01 00:44] LABS: ACETONE, SERUM SMALL (NEGATIVE)
[2022-01-01 01:01] LABS: RBC,URINE NONE SEEN /HPF (0-5); WBC,URINE NONE SEEN /HPF (0-5)
[2022-01-01 06:02] VITALS: BP 109/64
--- NOTE | 2022-01-01 06:02 | NUR ---
Patient discharged with v/s stable. Written and verbal after care instructions given and explained. Patient verbalized understanding. Ambulatory with steady gait. All questions addressed prior to discharge. Advised to follow up with PMD. DX: DEHYDRATION, ADULT
== END 2022-01-01 06:02 | disposition home or self-care (01) ==
LOC: MED 23:20
DX: R53.1 Weakness (principal); E86.0 Dehydration; E11.9 Type 2 diabetes mellitus without complications; Z79.4 Long term (current) use of insulin; Z79.899 Other long term (current) drug therapy; Z91.02 Food additives allergy status
CPT/HCPCS: 36415; 80053; 81001; 81025; 82009; 83605; 85025; 87040; 87804; 96361; 96374; 99283; J1885; J7030

== ENCOUNTER 2022-08-31 04:00 | Inpatient (IN) | payer OTHER ==
[~2022-08-31] VITALS: Ht 160 cm; Wt 53.5 kg
[2022-08-31] VITALS (12 sets, daily range): BP systolic 93–166; BP diastolic 53–74; PULSE 81–103; RESP 16–20; TEMP 97.8–98.6; O2SAT 98–100
--- NOTE | 2022-08-31 04:03 | NUR ---
PT PUT IN BED 3
--- NOTE | 2022-08-31 04:05 | NUR ---
Patient being evaluated by physician at bedside.
[2022-08-31] MEDS ORDERED: NACL 0.9% 1,000 ML IV ONE ×2 (04:10→04:45)
[2022-08-31] MEDS ORDERED: ONDANSETRON 4 MG ODT PO ONE (04:10)
[2022-08-31] MEDS ORDERED: KETOROLAC 15 MG/ML VIAL IVP ONE (04:10)
[2022-08-31] MEDS ORDERED: diphenhydrAMINE 50 MG/ML VIAL IVP ONE ×2 (04:15→05:35)
--- NOTE | 2022-08-31 04:20 | NUR ---
PT BIB AMB FROM HOME WITH C/O HYPERGLYCEMIA AND HYPEREMESIS. PT REPORTS NOT BEING ABLE TO GET INSULIN SINCE TESTERDAY. HX OF ANXIETY, HTN, DM T1 AND HIGH CHOLESTEROL. BLOOD SUGAR IS 443
[2022-08-31 04:45] LABS: BASOPHILS % (AUTO) 0.4 % (0.0-2.0); EOSINOPHILS # (AUTO) 0.3 K/uL (0-0.4); EOSINOPHILS % (AUTO) 2.9 % (0.0-4.0); HEMATOCRIT 42.5 % (36-48); HEMOGLOBIN 14.1 g/dL (12.0-16.0); LYMPHOCYTES % (AUTO) 43.1 % (20.5-51.1); MEAN CORPUSCULAR HEMOGLOBIN 31 pg (27-31); MEAN CORPUSCULAR HGB CONC 33 g/dL (33-37); MEAN CORPUSCULAR VOLUME 92.8 fL (80-94); MONOCYTES # (AUTO) 0.5 K/uL (0.8-1.0); NEUTROPHILS # (AUTO) 4.5 K/uL (1.8-7.7); NEUTROPHILS % (AUTO) 48.6 % (42.2-75.2); PLATELET COUNT (AUTO) 286 K/uL (140-450); RED BLOOD CELL COUNT(AUTO) 4.58 MIL/uL (4.20-5.40); RED CELL DISTRIBUTION WIDTH 12.7 % (11.6-13.7); WHITE BLOOD COUNT (AUTO) 9.2 K/uL (4.8-10.8)
[2022-08-31 05:05] LABS: ALBUMIN 3.9 g/dL (3.4-5.0); ANION GAP 27.8 (8-16); CARBON DIOXIDE 11.4 mmol/L (21-32); CREATININE 0.8 mg/dL (0.6-1.3); POTASSIUM 4.2 mmol/L (3.5-5.1); TOTAL BILIRUBIN 0.5 mg/dL (0.0-1.0)
[2022-08-31 05:14] LABS: BARBITURATE, URINE NEGATIVE ng/ml (NEG <=200); BENZODIAZEPINE, URINE NEGATIVE ng/mL (NEG <=200); CANNABINOID, URINE POSITIVE ng/mL (NEG <=50); COCAINE, URINE NEGATIVE ng/mL (NEG <=300); OPIATE, URINE NEGATIVE ng/mL (NEG <=2000); PHENCYCLIDINE SCREEN,URINE NEGATIVE ng/mL (NEG <=25)
[2022-08-31] MEDS ORDERED: DEXTROSE 50% 50 ML SYR IVP PRN (05:30)
[2022-08-31] MEDS ORDERED: INSULIN REGULAR, HUMAN 100 UNIT in NACL 0.9% 100 ML IV SCH ×2 (05:30)
[2022-08-31] MEDS ORDERED: DEXT 5% / NACL 0.45% 1,000 ML IV SCH (05:30)
[2022-08-31] MEDS ORDERED: NACL 0.9% 1,000 ML IV SCH (05:30)
--- NOTE | 2022-08-31 05:30 | NUR ---
BLOOD SUGAR 372
[2022-08-31 05:31] LABS: APPEARANCE,URINE CLEAR (CLEAR); BILIRUBIN,URINE NEGATIVE (NEGATIVE); BLOOD, URINE NEGATIVE (NEGATIVE); COLOR,URINE YELLOW (YELLOW); LEUKOCYTE ESTERASE ,URINE NEGATIVE (NEGATIVE); NITRITE, URINE NEGATIVE (NEGATIVE); PH,URINE 5.5 (5.0-9.0); UGLUCOSE 2+ (NEGATIVE)
[2022-08-31] MEDS ORDERED: MORPHINE SULFATE 2 MG/ML SYR IVP STA (05:32)
[2022-08-31] MEDS: BLOOD GLUCOSE MONITORING 1 DEV DEV FS SCH ×19 (05:32→23:49)
[2022-08-31] MEDS ORDERED: FAMOTIDINE 20 MG/2 ML VIAL IVP ONE (05:35)
[2022-08-31] MEDS ORDERED: ONDANSETRON 4 MG/2 ML VIAL ONE (05:57)
[2022-08-31] MEDS ORDERED: ONDANSETRON 4 MG/2 ML VIAL IVP ONE (06:00)
--- NOTE | 2022-08-31 06:35 | NUR ---
BLOOD SUGAR 356
--- NOTE | 2022-08-31 06:40 | NUR ---
INSULIN DRIP UNVERIFIED BY PHARMACY
--- NOTE | 2022-08-31 07:00 | NUR ---
INSULIN DRIP STARTED AT 5.3 ML/HR BASED ON PT WT.
--- NOTE | 2022-08-31 07:18 | NUR ---
Pt report given to VERA REDDY. Transfer of care at this time.
--- NOTE | 2022-08-31 08:00 | NUR ---
Patient will be admitted to care of MD ROLF. Admited to ICU. Will go to room BED 5. Belongings list completed. Report to VERA RENTERIA.
--- NOTE | 2022-08-31 08:15 | NUR ---
RECEIVED REPORT FROM ER. ADMITTED 26Y/O FEMALE. ADMITTING DX OF DKA. HX OF DM 1, ANXIETY, ALCOHOL ABUSE. AOX4, ABLE TO MAKE NEEDS KNOWN. NO C/O PAIN. NO SOB ON ROOM AIR. SR ON MONITOR. WITH PERIPHERAL IV IN LAC 20G, RAC 20G RUNNING NS AT 200CC/HR AND INSULIN DRIP 0.01 U/KG/HR. SKIN INTACT
[2022-08-31] MEDS: DEXT 5% / NACL 0.45% 1,000 ML IV SCH ×5 (08:25→22:52)
[2022-08-31] MEDS: INSULIN REGULAR, HUMAN 100 UNIT in NACL 0.9% 100 ML IV SCH ×2 (08:30)
[2022-08-31] MEDS: NACL 0.9% 1,000 ML IV SCH ×4 (08:37→23:25)
--- NOTE | 2022-08-31 08:46 | NUR ---
PATIENT HAS BEEN SCREENED AND CATEGORIZED HIGH NUTRITION RISK. PATIENT WILL BE SEEN WITHIN 1-2 DAYS OF ADMISSION. 09/01/22-09/02/[address]
--- NOTE | 2022-08-31 12:04 | NUR ---
DC PLANNING A 26 YEAR OLD FEMALE PATIENT ADMITTED TO ICU FOR EPIGASTRIC PAIN WITH NAUSEA AND VOMITING SECONDARY TO DKA,SHE MISSED HER DOSE OF INSULIN YESTERDAY .ANION GAP IS 27.8 AND GLUCOSE WAS 428.PATIENT WAS STARTED ON INSULIN DRIP.DC PLAN- DC HOME WHEN ANION GAP NORMALIZED AND PATIENT CONDITION IMPROVES.[facility] TO BE NOTIFIED. TO FOLLOW. Addendum: 08/31/22 at 1330 by ZEINAB GONZALEZ CM DC PLANNING-ADDENDUM REACHED OUT TO [facility] AND UPDATED PATIENT'S CONDITION.SPOKE WITH GRACIE REF# [id number].INFORMED [facility] THAT PATIENT WILL STAY IN ICU AND WILL BE DISCHARGED IN AM. Addendum: 09/01/22 at 1137 by ZEINAB GONZALEZ CM DC PLANNING PATIENT IS STILL ON INSULIN DRIP.ANION GAP 19.3.TALKED TO PAOLA AT [facility] AND AUTHORIZED PATIENT TO STAY HERE WHILE ON INSULIN DRIP.AUTH # [id number].CM TO FOLLOW.
--- NOTE | 2022-08-31 12:24 | NUR ---
PT RESTING IN BED, NO C/O PAIN, NO SOB. ON Q1H GLUCOSE CHECK
[2022-08-31 12:38] LABS: ANION GAP 19.1 (8-16); CARBON DIOXIDE 14.1 mmol/L (21-32); CREATININE 0.8 mg/dL (0.6-1.3); POTASSIUM 4.2 mmol/L (3.5-5.1)
--- NOTE | 2022-08-31 14:23 | NUR ---
08/31/22 RD INITIAL ASSESSMENT COMPLETED PLEASE REFER TO NUTRITION ASSESSMENT UNDER CARE ACTIVITY FOR ESTIMATED NUTRITIONAL NEEDS. 1. CONTINUE NPO DIET TOLERATED AND ONCE MEDICALLY APPROPRIAE ADVANCE DIET TO CCHO [address] TO FOLLOW-UP 7 DAYS, LOW RISK SHANKAR ZAMBRANO, RD
[2022-08-31] MEDS ORDERED: ACETAMINOPHEN 325 MG TAB ONE (15:37)
[2022-08-31] MEDS ORDERED: ACETAMINOPHEN 325 MG TAB PO PRN (15:40)
[2022-08-31 16:23] LABS: ANION GAP 14.6 (8-16); CARBON DIOXIDE 18.1 mmol/L (21-32); CREATININE 0.7 mg/dL (0.6-1.3); POTASSIUM 3.7 mmol/L (3.5-5.1)
--- NOTE | 2022-08-31 19:15 | NUR ---
TRANSFER OF CARE FROM DAY SHIFT, RECEVED REPRORT FROM DEXTER Townsend RN. PATIENT IS LYING IN BED RESTING. TV IS ON, AND PATIENT IS EASILY ARROUSED. PATIENT IS ABLE TO AMBULATE TO BEDSIDE COMMODE. PATIENT IS ABLE TO MAKE ALL NEEDS KNOWN. WILL CONTINUE TO MONITOR PATIENT
[2022-08-31 20:26] LABS: CARBON DIOXIDE 18.4 mmol/L (21-32); CREATININE 0.7 mg/dL (0.6-1.3); POTASSIUM 3.4 mmol/L (3.5-5.1)
[2022-09-01] VITALS (16 sets, daily range): BP systolic 96–159; BP diastolic 48–100; PULSE 82–126; RESP 13–27; TEMP 97.4–98.3; O2SAT 96–100
[2022-09-01 00:33] LABS: ANION GAP 13.2 (8-16); CARBON DIOXIDE 18.7 mmol/L (21-32); CREATININE 0.6 mg/dL (0.6-1.3)
[2022-09-01 00:34] LABS: POTASSIUM 2.9 mmol/L (3.5-5.1)
--- NOTE | 2022-09-01 00:34 | NUR ---
RECEIVED PHONE CALL FROM LAB, PATIENT WITH CRITICAL RESULT POTASSIUM = 2.9 NO OTHER RESULTS REPORTED
--- NOTE | 2022-09-01 00:35 | NUR ---
ATTEMPTED TO CONTACT ON-CALL PROVIDER REGARDING CRITICAL LABS, UNABLE TO REACH PROVIDER, WILL ASK CHARGE NURSE TO ASSIST.
[2022-09-01] MEDS: BLOOD GLUCOSE MONITORING 1 DEV DEV FS SCH ×12 (00:47→11:30)
--- NOTE | 2022-09-01 00:47 | NUR ---
CALLED DR. XIAO TO REPORT CRITICAL K LEVEL 2.9. HE ANSWERED THE PHONE AND I REPORTED THE K LEVEL 2.9. DR. XIAO ASKED WHY I AM CALLING IN THE MIDDLE OF THE NIGHT, THE PT. DOES HAVE A STANDARD ORDER. I TOLD HIM THAT THERE IS NO K STANDARD ORDER. HE STATED NOT TO WORRY AND HANGED UP THE PHONE.
[2022-09-01] MEDS ORDERED: KCL 20 MEQ IN 100 mL PREMIX 200 ML IV ONE ×2 (01:00→01:17)
--- NOTE | 2022-09-01 01:00 | NUR ---
INSULIN DRIP STOPPED PER MD ORDERS, WILL RESUME ONCE POTASSIUM IS 3.5
--- NOTE | 2022-09-01 01:01 | NUR ---
RECEIVED PHONE CALL FROM DR. XIAO TO RE-CONFIRM NEW ORDERS FOR PATIENT PROVIDED MD WITH TYPE OF IV FLUIDS THAT PATIENT IS CURRENTLY RECEIVING AND PROVIDER HAS STATED: (1). K-RIDER 40 MEQ (2). STOP INSULIN DRIP (3). RESUME INSULIN DRIP ONCE POTASSIUM IS 3.5 (4). CONTINUE HOURLY BLOOD SUGAR CHECKS (5). CONTINUE IV FLUIDS (6). FOLLOW DKA PROTOCOL (7). BMP EVERY 4 HOURS ORDERS READ BACK TO MD FOR CONFIRMATION
--- NOTE | 2022-09-01 01:11 | NUR ---
SECOND PHONE CALL PLACED TO ON-CALL PROVIDER (DR. XIAO) INFORMED MD THAT PATIENT HAS CRITICAL LAB (POTASSIUM = 2.9) AND PATIENT DOES NOT HAVE ANY ORDER FOR POTASSIUM SUPPLEMENT. ASKED PROVIDER IF HE WANTED TO ORDER ANY POTASSIUM REPLACEMENT FOR PATIENT RECEIVED THE FOLLOWING NEW ORDERS: (1). K-RIDER 40 MEQ (2). STOP INSULIN DRIP (3). RESUME INSULIN DRIP ONCE POTASSIUM IS 3.2 NEW ORDERS READ BACK TO MD FOR CONFIRMATION Addendum: 09/01/22 at 0119 by Mary Chairez RN SECOND CALL WAS PLACED AT [id number]
--- NOTE | 2022-09-01 01:22 | NUR ---
PHONE CALL RECEIVED FROM DR. XIAO TO CLARIFY ORDERS (1). K-RIDER 40 MEQ (2). STOP INSULIN DRIP (3). RESUME INSULIN DRIP ONCE POTASSIUM IS GREATER THAN 3.4 (4). CONTINUE HOURLY BLOOD SUGAR CHECKS (5). CONTINUE IV FLUIDS (6). FOLLOW DKA PROTOCOL (7). BMP EVERY 4 HOURS. (8.) POTASSIUM 20 MEQ (ORAL) ORDERS READ BACK TO MD FOR CONFIRMATION
[2022-09-01] MEDS ORDERED: POTASSIUM CHLORIDE 10 MEQ TABER PO ONE (01:40)
--- NOTE | 2022-09-01 01:56 | NUR ---
CALLED AND SPOKE WITH CIPRIANO IN THE AFTER-HOURS PHARMAC[facility] TO EXPEDITE REQUEST FOR POTASSIUM 20 MEQ ORAL SUPPLEMENT
--- NOTE | 2022-09-01 03:33 | NUR ---
PHONE CALL PLACED TO DR. XIAO; PATIENT WITH NAUSEA/VOMITING AND DOES NOT HAVE ORDERS FOR ANTI-EMETIC. NEW ORDERS RECEIVED FOR ONDANSETRON 2MG IVP Q4HRS PRN. ORDER READ BACK TO MD FOR VERIFICATION.
[2022-09-01] MEDS ORDERED: ONDANSETRON 4 MG/2 ML VIAL IVP PRN (03:35)
--- NOTE | 2022-09-01 03:41 | NUR ---
SPOKE WITH ZEE AT AFTER-HOURS PHARMACY TO EXPEDITE REQUEST FOR ONDANSETRON
[2022-09-01] MEDS ORDERED: ONDANSETRON 4 MG/2 ML VIAL ONE (03:48)
[2022-09-01] MEDS: DEXT 5% / NACL 0.45% 1,000 ML IV SCH ×2 (04:07→09:25)
--- NOTE | 2022-09-01 04:38 | NUR ---
DR. XIAO ORDERED 40 MEQ IVPB K-RIDER AND 20MEQ K-RIDER (1ST BAG) GIVEN TO THE LEFT AC IV AND DONE. 2ND BAG 20 MEQ K-RIDER TO THE LEFT AC STARTED, HOWEVER PT. STARTED TO SCREAM THAT IT'S SO PAINFUL AND TO STOP IT. RIGHT AWAY STOPPED THE K-RIDER IVPB AND CALLED DR. XIAO TO REPORT. DR. XIAO ORDERED TO DO BMP NOW AND CALL HIM WITH THE RESULT. IF K 3.4 START INSULIN DRIP.
[2022-09-01 05:29] LABS: ANION GAP 23.7 (8-16); CARBON DIOXIDE 12.4 mmol/L (21-32); CREATININE 0.8 mg/dL (0.6-1.3); POTASSIUM 4.1 mmol/L (3.5-5.1)
[2022-09-01] MEDS ORDERED: hydrALAZINE 20 MG/ML VIAL IVP PRN (05:30)
[2022-09-01] MEDS ORDERED: KETOROLAC 15 MG/ML VIAL IVP ONE (05:30)
[2022-09-01] MEDS ORDERED: LORazepam 2 MG/ML VIAL IVP PRN (05:30)
--- NOTE | 2022-09-01 05:30 | NUR ---
SPOKE WITH DR. XIAO AND PROVIDED PATIENT UPDATE (ELEVATED BLOOD PRESSURE, ANXIETY, ABDOMINAL PAIN). NEW ORDERS RECEIVED: (1). ATIVAN 1MG IVP Q4HRS PRN (2). HYDRALAZINE 10MG Q6HRS PRN SBP>170 (3). TORADOL 15MG IVP x1 READ BACK ORDERS AND CONFIRMED WITH MD. MD ALSO INFORMED OF POTASSIUM RESULTS = 4.1 PER PREVIOUS DISCUSSION WITH DR. XIAO, INSULIN CAN NOW BE RESTARTED. ALSO PER THE PROTOCOL D5 1/2 TO BE STOPPED AND NORMAL SALINE TO RESUME UNTIL BLOOD SUGAR DROPS TO 250 AND BELOW. PLEASE FOLLOW THE DKA PROTOCOL FOR ALL ELECTROLYTE IMBALANCES
[2022-09-01] MEDS ORDERED: KETOROLAC 15 MG/ML VIAL ONE (05:42)
--- NOTE | 2022-09-01 05:53 | NUR ---
DR. XIAO CALLED AND ASKED FOR NA LEVEL. REPORTED NA 132. REPORTED PT. ASKING FOR MEDICATION FOR NAUSEA. PT. HAS STANDARD ORDER FOR ZOFRAN 2MG IVP PRN Q 4HRS. AND GIVEN [address] XIAO ORDERED NOT TO GIVE ZOFRAN NOW IF PT. IS JUST NAUSEATED. ALSO REPORTED DURING THE VOMITING, NOTED MODERATE DARK COFFEE GROUND. HE ORDERED, TO CLOSELY MONITOR PT. WILL ENDORSE TO THE NEXT SHIFT.
[2022-09-01] MEDS: NACL 0.9% 1,000 ML IV SCH ×2 (06:38→09:25)
--- NOTE | 2022-09-01 07:15 | NUR ---
Received report from shift boss VERA Hernandez. Patient VSS 102/59, HR 109, RR 21 SpO2 99% T 98.0 able to respond to questions and make needs known. Lungs are present in all lobes upon auscultation. Abdominal soft with no pain stated when palpated. Patient has 20G on left forearm with Insulin drip running at 0.1 unit/kg/hr with NS running at 200 ml/hr and D5% 0.45% on standby. Patient skin is intact. Patient with no s/sx of discomfort or pain. No acute distress or SOB noted. Bed locked and in lowest position. Call light within reach of patient.
--- NOTE | 2022-09-01 07:58 | NUR ---
Dr. Rogel medical physiologist rounded at patients bedside. No new orders received. Will continue to follow plan of care.
[2022-09-01 09:39] LABS: ANION GAP 19.3 (8-16); CARBON DIOXIDE 14.2 mmol/L (21-32); CREATININE 0.6 mg/dL (0.6-1.3); POTASSIUM 3.5 mmol/L (3.5-5.1)
[2022-09-01] MEDS: INSULIN REGULAR, HUMAN 100 UNIT in NACL 0.9% 100 ML IV SCH ×2 (11:08)
--- NOTE | 2022-09-01 12:28 | NUR ---
Dr. Ordaz rounded at patients bedside. Patient AOx4 when MD Ordaz was going over plan. Per MD Ordaz stated to the patient "if your anion gap closes and bicarb is ok and you have no vomiting or nausea then you can go home by tonight or tomorrow morning." Patient asked about leaving home today and MD answered "depend on the lab values." Will continue to follow plan of care.
[2022-09-01 13:09] LABS: ANION GAP 14.1 (8-16); CARBON DIOXIDE 20.7 mmol/L (21-32); CREATININE 0.7 mg/dL (0.6-1.3); POTASSIUM 3.8 mmol/L (3.5-5.1)
--- NOTE | 2022-09-01 14:05 | NUR ---
Contacted Dr. Ordaz regarding patients decision to go AMA. Per MDs reply "let her know she will likely DC evening can she wait" when asked patient if she was ok on holding off until evening she stated "no." after relaying to Dr. Ordaz about patient insisted to go AMA MD replied "yeah then she needs to leave AMA."
--- NOTE | 2022-09-01 14:15 | NUR ---
Patient stated to want to leave AMA. Educated patient on her condition and the importance of staying under current treatment. Patient refused and stated " I want to go AMA."
--- NOTE | 2022-09-01 14:36 | NUR ---
Patient AOx4 when handed the AMA documentation. Patient is signed against medical advise.
--- NOTE | 2022-09-01 15:20 | NUR ---
Patient was picked up by her mother, vss, no SOB, or acute distress noted.
== END 2022-09-01 16:30 | disposition left against medical advice (07) | DRG 420 ==
LOC: MED 04:00 → MIC 07:33
PROVIDERS: ADMIT Student in an Organized Health Care Education/Training Program; ATTEND Student in an Organized Health Care Education/Training Program
DX: E10.10 Type 1 diabetes mellitus with ketoacidosis without coma (principal); R65.10 Systemic inflammatory response syndrome (SIRS) of non-infectious origin without acute organ dysfunction; E78.5 Hyperlipidemia, unspecified; F12.90 Cannabis use, unspecified, uncomplicated; Z53.29 Procedure and treatment not carried out because of patient's decision for other reasons; F32.9 Major depressive disorder, single episode, unspecified; Z88.8 Allergy status to other drugs, medicaments and biological substances; Z79.899 Other long term (current) drug therapy; Z79.4 Long term (current) use of insulin; Z83.3 Family history of diabetes mellitus; Z81.8 Family history of other mental and behavioral disorders
CPT/HCPCS: 36415; 80048; 80053; 80305; 81003; 82803; 82948; 83690; 85025; 87081; J1200; J1815; J1885; J2270; J2405; J3480; J3490; Q0162